=== PATIENT | male | born 1990 ===

== ENCOUNTER 2017-08-17 05:07 | Inpatient (IN) | payer MEDICAID ==
[2017-08-17 05:14] VITALS: O2SAT 98
--- NOTE | 2017-08-17 05:15 | ED PDOC ---
Psych Transfer Clearance - Clearance Statement Clearance Statement: Reviewed vital signs, lab results and transfer papers. Patient clinically stable for psychiatric admission.
[2017-08-17] MEDS ORDERED: DiphenhydrAMINE 50 mg/ml Inj IM PRN (05:32)
[2017-08-17] MEDS ORDERED: Magnesium Hydroxide Susp 30 ml UD PO PRN (05:32)
[2017-08-17] MEDS ORDERED: Alum-Mag Hydrox-Simethicone Susp (30 mL) PO PRN (05:32)
[2017-08-17] MEDS ORDERED: Bismuth Subsalicylate 262 mg/15 ml Sus (240 ml) PO PRN (05:36)
--- NOTE | 2017-08-17 06:10 | PCM.BM ---
<Guanaco Palumbo P - Last Filed: 08/17/17 06:09> Treatment Plan Problems - Problems identified on initial assessmt Hopelessness/helplessness Date Initiated: 08/17/17 Time Initiated: 06:09 Assessment reference: NA Status: Active Treatment assets and liabiliti Patient Assests: cooperative, physically healthy, good support system, negotiates basic needs, cognitively intact Patient Liabilities: substance abuse (Alcohol abuse) <Harvinder Stanley J - Last Filed: 08/19/17 08:26> Family Contact Family contact: Patient agrees to contact, Family has been contacted by patient , Telephone contact initiated by staff Family contact name: Lakshmi ([phone]) Family contacted how many times per week?: 3 Family contact comment: Pt's mother offered no complaints and only wanted to know how pt was doing on the unit and medications that were being prescribed. - Outside Agency Agency 1 Care involvment: Following patient during stay Agency contact name: [facility] Agency contact number: - Goals for Treatment Patient goals for treatment: "I want to feel better." Discharge/Continuing Care - Education Needs Education Needs: Family Medication, Family Community resources, Patient Medication, Patient Diagnosis/Disease Process, Patient Coping Skills, Patient Community resources - Discharge Discharge Criteria: Free of agitation, Normal sleep pattern, Reduction of target symptoms Discharge to:: Home, With Family
[2017-08-17] MEDS ORDERED: Pneumococcal 23-Valent Vaccine IM ONE (06:27)
[2017-08-17] MEDS ORDERED: Influenza Vaccine 18yr & older 0.5 ML/45 MCG SYR IM ONE (06:27)
[2017-08-17 08:00] LABS: BASO % 0.5 % (0.0-2.0); EOS # 0.1 K/uL (0.0-0.7); EOS % 2.6 % (0.0-4.0); HEMATOCRIT 45.3 % (35.0-51.0); LYMPH # 1.4 K/uL (1.0-4.3); LYMPH % 27.3 % (20.0-40.0); MEAN CORPUSCULAR HEMOGLOBIN 30.4 pg (27.0-31.0); MEAN CORPUSCULAR HGB CONC 33.8 g/dL (33.0-37.0); MEAN PLATELET VOLUME 8.5 fl (7.2-11.7); MONO # 0.5 K/uL (0.0-0.8); MONO % 8.8 % (0.0-10.0); NEUT # 3.2 K/uL (1.8-7.0); NEUT % 60.8 % (50.0-75.0); RED CELL DISTRIBUTION WIDTH 13.1 % (11.5-14.5); WHITE BLOOD COUNT 5.2 K/uL (4.8-10.8)
[2017-08-17 08:07] LABS: ALB/GLOB RATIO 1.4 (1.0-2.1); ALKALINE PHOSPHATASE 68 U/L (38-126); ALT/SGPT 57 U/L (21-72); AST/SGOT 30 U/L (17-59); BILIRUBIN,TOTAL 0.8 mg/dl (0.2-1.3); BLOOD UREA NITROGEN 12 mg/dl (9-20); CALCIUM 9.7 mg/dL (8.4-10.2); CARBON DIOXIDE 25 mmol/L (22-30); CHLORIDE 105 mmol/L (98-107); CHOLESTEROL 237 mg/dL (0-199); GFR AFRICAN-AMERICAN > 60; GLUCOSE,RANDOM 91 mg/dL (75-110); SODIUM 140 mmol/l (132-148); TOTAL PROTEIN 7.5 G/DL (6.3-8.2)
[2017-08-17 08:28] LABS: T4 7.87 ug/dl (5.5-11.0)
--- NOTE | 2017-08-17 10:25 | CP.PCM.CON ---
History of Present Illness - History of Present Illness History of Present Illness: Reason for Consult: per hospital protocol HPI: 26 y/o M with no PMH admitted for depression, suicidal & homicidal ideation. This morning patient denies any suicidal or homicidal ideation, pt is calm and cooperative, poor eye contact, feels little anxious and wants to take a nap. pt denies any fever, chills, n/v, chest pain, SOB, or abdo pain. pt lives with family, denies any previous suicidal or homicidal acts. PMH: denies PSH: denies FH: Mother- DM2 SH: Alcohol use 4 beers every other day, smokes 6 Cig/ day and denies any illicit drug use Meds: as below Allergies: NKDA Vitals: reviewed and currently stable Review of Systems - Constitutional Constitutional: absent: Fever, Headache - EENT Eyes: absent: Blurred Vision Ears: absent: Ear Discharge, Dizziness - Cardiovascular Cardiovascular: absent: Chest Pain, Dyspnea on Exertion, Palpitations - Respiratory Respiratory: absent: Cough, Dyspnea, Dyspnea on Exertion - Gastrointestinal Gastrointestinal: absent: Abdominal Pain - Genitourinary Genitourinary: absent: Change in Urinary Stream, Difficulty Urinating, Dysuria, Flank Pain - Neurological Neurological: absent: Dizziness, Numbness, Headaches - Psychiatric Psychiatric: Anxiety, Depression, Difficulty Concentrating, Hopelessness. absent: Auditory Hallucinations, Confusion, Hallucinations, Homicidal Ideation, Irritability Past Patient History - Past Social History Smoking Status: Heavy Smoker > 10 Cigarettes Daily - CARDIAC Hx Hypercholesterolemia: Yes (instructed to change diet) - PULMONARY Hx Tuberculosis: No - NEUROLOGICAL Hx Seizures: No - HEMATOLOGICAL/ONCOLOGICAL Hx Human Immunodeficiency Virus (HIV): No - GENITOURINARY/GYNECOLOGICAL Hx Sexually Transmitted Disorders: No - PSYCHIATRIC Hx Depression: Yes Hx Substance Use: No - SURGICAL HISTORY Hx Surgeries: No - ANESTHESIA Hx Anesthesia: No Meds Allergies/Adverse Reactions: Allergies Allergy/AdvReac Type Severity Reaction Status Date / Time No Known Allergies Allergy Verified 10/29/14 14:06 - Medications Medications: Current Medications Acetaminophen (Tylenol 325mg Tab) 650 mg PO Q4 PRN PRN Reason: pain level 4-7 Al Hydrox/Mg Hydrox/Simethicone (Maalox Plus 30 Ml) 30 ml PO Q4 PRN PRN Reason: Dyspepsia Bismuth Subsalicylate (Pepto-Bismol) 524 mg PO Q4 PRN PRN Reason: Diarrhea Diphenhydramine HCl (Benadryl) 50 mg IM Q6 PRN PRN Reason: Extrapyramidal S/S Unable PO Diphenhydramine HCl (Benadryl) 50 mg PO Q6 PRN PRN Reason: Extrapyramidal Symptoms Diphenhydramine HCl (Benadryl) 50 mg PO HS PRN PRN Reason: Sleep Haloperidol (Haldol) 5 mg PO Q4 PRN PRN Reason: Agitation Haloperidol Lactate (Haldol) 5 mg IM Q4 PRN PRN Reason: Agitation, Unable to Take PO Lorazepam (Ativan) 2 mg IM Q4 PRN PRN Reason: Anxiety/Agitation,Unable PO Lorazepam (Ativan) 2 mg PO Q4 PRN PRN Reason: Anxiety/Agitation Magnesium Hydroxide (Milk Of Magnesia) 30 ml PO HS PRN PRN Reason: Constipation Physical Exam - Constitutional Appears: No Acute Distress - Head Exam Head Exam: ATRAUMATIC, NORMAL INSPECTION, NORMOCEPHALIC - Eye Exam Eye Exam: EOMI, Normal appearance, PERRL Pupil Exam: NORMAL ACCOMODATION, PERRL - ENT Exam ENT Exam: Mucous Membranes Moist, Normal Exam - Neck Exam Neck exam: Positive for: Normal Inspection - Respiratory Exam Respiratory Exam: Clear to Auscultation Bilateral, NORMAL BREATHING PATTERN - Cardiovascular Exam Cardiovascular Exam: REGULAR RHYTHM, +S1, +S2. absent: Diastolic murmur, Rubs, Systolic Murmur - GI/Abdominal Exam GI & Abdominal Exam: Normal Bowel Sounds, Soft - Extremities Exam Extremities exam: Positive for: full ROM, normal inspection. Negative for: calf tenderness, joint swelling, pedal edema, tenderness - Back Exam Back exam: absent: CVA tenderness (L), CVA tenderness (R) - Neurological Exam Neurological exam: Alert, CN II-XII Intact, Normal Gait, Oriented x3 - Psychiatric Exam Psychiatric exam: Depressed, Flat Affect - Skin Skin Exam: Intact, Normal Color Results - Vital Signs Recent Vital Signs: Last Vital Signs Temp 98.1 F 08/17/17 05:11 Pulse 83 08/17/17 09:00 Resp 18 08/17/17 09:00 BP 124/66 08/17/17 09:00 Pulse Ox 98 08/17/17 05:11 - Labs Result Diagrams: 08/17/17 07:49 08/17/17 07:49 Labs: Laboratory Results - last 24 hr 08/17/17 08/17/17 07:49 07:49 WBC 5.2 RBC 5.04 Hgb 15.3 Hct 45.3 MCV 90.0 MCH 30.4 MCHC 33.8 RDW 13.1 Plt Count 188 MPV 8.5 Neut % (Auto) 60.8 Lymph % (Auto) 27.3 Alcorn % (Auto) 8.8 Eos % (Auto) 2.6 Baso % (Auto) 0.5 Neut # 3.2 Lymph # 1.4 Alcorn # 0.5 Eos # 0.1 Baso # 0.0 Sodium 140 Potassium 4.0 Chloride 105 Carbon Dioxide 25 Anion Gap 14 BUN 12 Creatinine 0.7 L Est GFR ( Amer) > 60 Est GFR (Non-Af Amer) > 60 Random Glucose 91 Calcium 9.7 Total Bilirubin 0.8 AST 30 ALT 57 Alkaline Phosphatase 68 Total Protein 7.5 Albumin 4.4 Globulin 3.1 Albumin/Globulin Ratio 1.4 Triglycerides 284 H Cholesterol 237 H LDL Cholesterol Direct 138 H HDL Cholesterol 37 Thyroxine (T4) 7.87 TSH 3rd Generation 2.00 Assessment & Plan - Assessment and Plan (Free Text) Assessment: A/P: 26 y/o M with no PMH admitted for depression, suicidal & homicidal ideation. - Continue management as per psych - Date & Time Date: 08/17/17 Time: 09:30
--- NOTE | 2017-08-17 10:50 | PCM.PYCHPN ---
Psychiatric Progress Note - Psychiatric Progress Note Patient seen today, length of contact: discussed with team Patient Chief Complaint: i had thoughts to hurt myself and a friend Problems Identified/Issues Discussed: pt attends an outpt program. he states he takes abilify and it is helpful. pt states he is here because he was having bad thoughts. states they are intrusive and he does not want to act on them. states he gets suicidal thoughts and sometimes hears a voice. he states he has no access to a weapon and has never acted on his thoughts. he reports he lives with his parents, states he gradulated hs, but had trouble socializing and making friends. he denies making any previous suicide attempts. he wants to feel less depressed and to no longer have any thoughts to harm himself. see the psych assessment for details
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
[2017-08-17] MEDS ORDERED: ARIPIPRAZOLE PO SCH (11:00)
--- NOTE | 2017-08-18 11:31 | PCM.PYCHPN ---
Psychiatric Progress Note - Psychiatric Progress Note Patient seen today, length of contact: discussed with team Patient Chief Complaint: i feel a little better Problems Identified/Issues Discussed: pt states he is feeling a little better. states the"bad thoughts" are improving. reports some trouble sleeping because the arm in which he had his flu shot hurts. he reports he still feels depressed. he is agreeable to starting wellbutrin. Medication Change: Yes Medical Record Reviewed: Yes Mental Status Examination - Cognitive Function Orientation: Person, Place, Situation, Time Memory: Intact Attention: WNL Concentration: WNL Association: WN Fund of Knowledge: [facility] Decription of patient's judgement and insights: fair - Mood Mood: Depressed - Affect Affect: Blunted - Formal Thought Process Formal Thought Process: Other (internally preoccupied) - Suicidal Ideation Suicidal Ideation: No Plan: denies suicidal or homicidal thoughts - Homicidal Ideation Homicidal Ideation: No Plan: denies h/i Goal/Treatment Plan - Goal/Treatment Plan Need for Continued Stay: Remain at risks for inpatient hospitalization, Discharge may exacerbated symptoms Progress Toward Problem(s) and Goals/Treatment Plan: bipolar disorder, depressed continue abilify start wellbutrin tomorrow to target mood encourage participation in groups disposition planning Estimated Date of D/C: 08/20/17
--- NOTE | 2017-08-19 09:34 | PCM.PYCHPN ---
Psychiatric Progress Note - Psychiatric Progress Note Patient seen today, length of contact: discussed with team Patient Chief Complaint: i am okay Problems Identified/Issues Discussed: pt noted to have some sterotyped movements of fingers, hands. he is pacing the halls at times and he avoids eye contact when he speaks. he denies any new side effects with the increase in abilify. he will start wellbutrin today. Medication Change: No Medical Record Reviewed: Yes Mental Status Examination - Cognitive Function Orientation: Person, Place, Situation, Time Memory: Intact Attention: WNL Concentration: WNL Association: WN Fund of Knowledge: [facility] Decription of patient's judgement and insights: fair - Mood Mood: Depressed - Affect Affect: Blunted - Speech Speech: Soft - Formal Thought Process Formal Thought Process: Other (internally preoccupied) - Suicidal Ideation Suicidal Ideation: No - Homicidal Ideation Homicidal Ideation: No Goal/Treatment Plan - Goal/Treatment Plan Need for Continued Stay: Remain at risks for inpatient hospitalization, Discharge may exacerbated symptoms Progress Toward Problem(s) and Goals/Treatment Plan: bipolar disorder, depressed r/o autistic spectrum, mild continue abilify start wellbutrin today to target mood encourage participation in groups disposition planning- discharge thursday Estimated Date of D/C: 08/20/17
[2017-08-19] MEDS: buPROPion SR 150 MG TABLET PO SCH (09:48)
[2017-08-20] MEDS: buPROPion SR 150 MG TABLET PO SCH (09:03)
[2017-08-20 09:20] VITALS: RESP 18
--- NOTE | 2017-08-20 11:50 | PCM.PYCHPN ---
Psychiatric Progress Note - Psychiatric Progress Note Patient seen today, length of contact: discussed with team Patient Chief Complaint: i am doing good Problems Identified/Issues Discussed: pt visible on the milieu. he is without complaints of insomnia or medication side effects. no aggression or agitation. Medication Change: No Medical Record Reviewed: Yes Mental Status Examination - Cognitive Function Orientation: Person, Place, Situation, Time Memory: Intact Attention: WNL Concentration: WNL Association: WNL Fund of Knowledge: [facility] Decription of patient's judgement and insights: fair - Mood Mood: Depressed - Affect Affect: Blunted - Speech Speech: Soft - Formal Thought Process Formal Thought Process: No Impairment, Other (internally preoccupied) - Suicidal Ideation Suicidal Ideation: No - Homicidal Ideation Homicidal Ideation: No Goal/Treatment Plan - Goal/Treatment Plan Need for Continued Stay: Remain at risks for inpatient hospitalization, Discharge may exacerbated symptoms Progress Toward Problem(s) and Goals/Treatment Plan: bipolar disorder, depressed r/o autistic spectrum, mild continue abilify continue wellbutrin encourage participation in groups disposition planning- discharge tomorrow Estimated Date of D/C: 08/20/17
[2017-08-20] MEDS: Benzocaine/Menthol (Cepacol) Lozenge PO PRN (21:50)
[2017-08-21] MEDS: buPROPion SR 150 MG TABLET PO SCH (09:03)
[2017-08-21 09:09] VITALS: BP 123/73; PULSE 85; TEMP 97.5
--- NOTE | 2017-08-21 10:02 | PCM.PYCHDC ---
Mental Status Examination - Mental Status Examination Orientation: Person, Place, Situation, Time Memory: Intact Mood: Depressed Affect: Broad Speech: Appropriate Attention: WNL Concentration: WNL Association: WNL Fund of Knowledge: WNL Formal Thought Process: No Impairment Description of patient's judgement and insight: fair Psychotic Thoughts and Behaviors: denies current a/v hallucinations Suicidal Ideation: No Current Homicidal Ideation?: No Plan: denies any suicidal or homicidal thoughts Discharge Summary - Discharge Note Reason for Hospitalization: pt c/o depression and auditory hallucinations Psychiatric History (includes Medical, Family, Personal Hx): history of schizoaffective disorder Consultations:: List each consultation separately and include: 1. Reason for request. 2. Findings. 3. Follow-up Consultations: seen by hospitalist Summary of Hospital Course include:: 1. Description of specific treatment plan utilized for patients during their course of treatmen. 2. Summarize the time- course for resolution of acute symptoms and/or regressed behaviors. 3. Describe issues identified and worked on during hospitalization. 4. Describe medication utilized. 5. Describe medical problems identified and treated. 6. Reassessment of suicide risk Summary of Hospital Course: pt attends an outpt program. he states he takes abilify and it is helpful. pt states he is here because he was having bad thoughts. states they are intrusive and he does not want to act on them. states he gets suicidal thoughts and sometimes hears a voice. he states he has no access to a weapon and has never acted on his thoughts. he reports he lives with his parents, states he gradulated hs, but had trouble socializing and making friends. he denies making any previous suicide attempts. he wants to feel less depressed and to no longer have any thoughts to harm himself. pt was admitted to [facility] and oriented to the unit. pt was placed on routine safety protocols. pt was started back on abilify and wellbutrin was started to target his depression. he was participating in groups. he was denying any suicidal or homicidal thoughts and stated the voices had reduced and did not bother him at time of discharge. he was denying any suicidal or homicidal thoughts at time of discharge and was agreeing to follow up with treatment. - Final Diagnosis (DSM 5) Condition upon Discharge: STABLE DSM 5: schizoaffective disorder Disposition: HOME/ ROUTINE Follow-up Treatment Plan: follow up with aftercare as directed take medications as prescribed do not use alcohol, tobacco or other illicit substances call 911 if any suicidal or homicidal thoughts Prescriptions/Medication Reconciliation: Aripiprazole [Abilify] 30 mg PO DAILY #30 tablet buPROPion SR [Wellbutrin SR 150 MG] 150 mg PO DAILY #30 tab Nicotine 7 mg/24 hr [Nicoderm CQ] 1 patch TD DAILY #30 patch traZODone [Desyrel] 50 mg PO HS #30 tab - Smoking Cessation Smoking Cessation Medication prescribed: Yes - Antipsychotic Medications Pt discharged on 2 or more routine antipsychotic medications: No
[2017-08-21] MEDS: Benzocaine/Menthol (Cepacol) Lozenge PO PRN (10:59)
== END 2017-08-21 13:25 | disposition home or self-care (01) | DRG 430 ==
LOC: H.ER 05:07 → H.PSYCH 05:14
PROVIDERS: ADMIT Psychiatry & Neurology Psychiatry; ATTEND Psychiatry & Neurology Psychiatry
PROC: GZHZZZZ Group Psychotherapy (ICD-10-PCS; principal; 2017-08-17)
PROC: GZ58ZZZ Individual Psychotherapy, Cognitive-Behavioral (ICD-10-PCS; 2017-08-17)
PROC: 3E0234Z Introduction of Serum, Toxoid and Vaccine into Muscle, Percutaneous Approach (ICD-10-PCS; 2017-08-17)
DX: F25.9 Schizoaffective disorder, unspecified (principal); R45.851 Suicidal ideations; F31.9 Bipolar disorder, unspecified; E78.00 Pure hypercholesterolemia, unspecified; F17.210 Nicotine dependence, cigarettes, uncomplicated; Z23 Encounter for immunization